=== PATIENT | female | born 1975 | race Caucasian/White ===

== ENCOUNTER 2022-09-17 12:52 | Emergency (ER) | payer BC, SELFPAY ==
--- NOTE | ~2022-09-17 | XR_ITS ---
XR shoulder LT min 2V 09/17/2022 13:22 Indication: Left shoulder pain Procedure: 4 views left shoulder Comparison: No prior studies for comparison. Findings: There is anatomic alignment. No fracture, subluxation or dislocation. No significant soft t issue abnormality. No foreign bodies. Impression: 1: No significant bone or joint abnormality. Reviewed, dictated and finalized at location A. R ROLLER Impression: 1: No significant bone or joint abnormality.
[2022-09-17 12:56] VITALS: BP 145/57; PULSE 102; RESP 16; TEMP 37.1; O2SAT 100
--- NOTE | 2022-09-17 16:58 | ED.UPPEXIN ---
HPI - Extremity Injury (Upper) General Chief Complaint: Extremity Injury, Upper Stated Complaint: left shoulder injury Time Seen by Provider: 09/17/22 15:35 Source: patient Mode of arrival: ambulatory Limitations: no limitations History of Present Illness HPI narrative: Patient is a 47-year-old female who presents to the ED with report of left shoulder pain. Patient reports she tripped and fell over her dog today, falling forward. She tried to catch herself with her left hand and feliciano her left shoulder. She is currently undergoing physical therapy for rotator cuff injury and impingement. She sees a sports medicine/emergency specialist with [facility] in [place]. Patient concerned she may have reinjured herself today with the fall. She denies any other injuries. No wrist or elbow pain. No numbness, tingling. Related Data Allergies Allergy/AdvReac Type Severity Reaction Status Date / Time aspirin Allergy Intermediate UPSET Verified 04/21/12 17:58 STOMACH ibuprofen AdvReac Mild Nausea Verified 04/21/12 17:55 BANDAIDS/TAPE AdvReac Mild SENSITIVITY Uncoded 04/21/12 17:56 TO BOTH-IRRITATES SKIN NAPROXEN SODIUM AdvReac Mild Nausea Uncoded 04/21/12 17:55 Review of Systems Review of Systems: CONSTITUTIONAL: Denies fever, chills, or sweats. MUSCULOSKELETAL: Reports left shoulder pain. Denies left wrist or elbow pain. NEUROLOGIC: Denies tingling, numbness, or weakness. All systems reviewed & are unremarkable except as noted in HPI and below PMFSH Past Medical History Medical History Rotator cuff injury Surgical History Surgical History (Updated 09/17/22 @ 19:36 by Avis Roman PA-C) No pertinent past surgical history Social History Social History (Updated 09/17/22 @ 19:36 by Avis Roman PA-C) Smoking status: Never smoker Exam Narrative: GENERAL: Well appearing, well-nourished, non-toxic, in no acute distress. HEAD: Normocephalic, atraumatic. NECK: Supple. No adenopathy, no masses. RESPIRATORY: Airway patent, respirations nonlabored. Clear to auscultation bilaterally, no rales, rhonchi, wheezing. CARDIOVASCULAR: Regular rate and rhythm without murmurs, rubs, or gallops. Radial pulses 2+ and equal bilaterally. MUSCULOSKELETAL: Moves all extremities. No gross deformities. No significant focal tenderness to palpation over the left shoulder. Mild limitations in range of motion of left shoulder due to pain, which patient reports is chronic. No tenderness to palpation over left elbow, left wrist. Sensation intact. SKIN: Warm, dry, normal color. No rashes. NEURO: A&O X3. Speech clear. Cranial nerves II-XII grossly intact. Steady gait. No ataxic movements. PSYCHIATRIC: Appropriate mood and affect. Normal interaction. Course Vital Signs Vital signs: Vital Signs Temperature 98.7 F 09/17/22 12:56 Pulse Rate 102 H 09/17/22 12:56 Respiratory Rate 16 09/17/22 12:56 Blood Pressure 145/57 H 09/17/22 12:56 Pulse Oximetry 100 09/17/22 12:56 Oxygen Delivery Room Air 09/17/22 12:56 Temperature 98.7 F 09/17/22 12:56 Pulse Rate 102 H 09/17/22 12:56 Respiratory Rate 16 09/17/22 12:56 Blood Pressure 145/57 H 09/17/22 12:56 Pulse Oximetry 100 09/17/22 12:56 Oxygen Delivery Room Air 09/17/22 12:56 MDM - Extremity Injury (Upper) MDM Narrative Medical decision making narrative: Patient presented to ED with report of acute on chronic left shoulder pain status post mechanical fall today. Currently undergoing PT for rotator cuff injury. Neurovascularly intact upon exam. No gross deformities. X-ray performed today does not show any signs of acute osseous abnormality. Patient did ask about possible MRI, which I advised is not performed through the ED. Patient does not anything for pain at this time. She was given an arm sling for comfort. I advised patient to follow-up with orthop
== END 2022-09-17 17:11 | disposition home or self-care (01) ==
PROVIDERS: Emergency Provider Physician Assistant; PCP Family Medicine Sports Medicine
DX: S46.912A Strain of unspecified muscle, fascia and tendon at shoulder and upper arm level, left arm, initial encounter (principal); W01.0XXA Fall on same level from slipping, tripping and stumbling without subsequent striking against object, initial encounter
CPT/HCPCS: 73030; 99283; A4565

== ENCOUNTER 2023-08-18 12:01 | Outpatient (CLI) | payer BC, SELFPAY ==
--- NOTE | ~2023-08-18 | MM_ITS ---
EXAMINATION: MM screening raj BI w tosha HISTORY: Screening mammogram TECHNIQUE: Craniocaudal and mediolateral oblique 3-D tomosynthesis images were obtained and synthetic 2-D images were generated. CAD analysis was submitted and interpreted. COMPARISON: 12/10/2017 BREAST PARENCHYMAL COMPOSITION: There are scattered areas of fibroglandular density. FINDINGS: No suspicious mass, calcification, or architectural distortion are identified in either césar ast to suggest malignancy. There has been no suspicious interval change. IMPRESSION: 1. No mammographic evidence of malignancy. 2. Recommend routine screening mammography in one year. BI-RADS Category 1: Negative Reviewed, dictated and finalized at location A.
== END 2023-08-18 12:02 | disposition home or self-care (01) ==
LOC: CHSIMG 12:03
PROVIDERS: PCP Family Medicine Sports Medicine; Visit Provider Nurse Practitioner Obstetrics & Gynecology
DX: Z12.31 Encounter for screening mammogram for malignant neoplasm of breast (principal)
CPT/HCPCS: 77063; 77067